=== PATIENT | male | born 1970 | race Caucasian/White ===

== ENCOUNTER 2016-12-20 14:46 | Emergency (ER) | payer OTHER ==
[~2016-12-20] VITALS: Ht 177.8 cm; Wt 156.0 kg
[~2016-12-20 14:46] MED LIST: ALLE24TA PO; FLON0.053; LEXA5TAB PO; LISI10TA PO; NORV2.5T11
[2016-12-20 14:48] VITALS: BP 159/98; PULSE 107; RESP 16; TEMP 98.2; O2SAT 98
[2016-12-20] MEDS ORDERED: FEXO1TAB97 PO (14:59)
[2016-12-20] MEDS ORDERED: LISI10TA PO (14:59)
[2016-12-20] MEDS ORDERED: NORV2.5T PO (14:59)
[2016-12-20] MEDS ORDERED: LEXA5TAB PO (14:59)
[2016-12-20] MEDS ORDERED: METF500T PO (14:59)
[2016-12-20] MEDS ORDERED: FLUT1SPR5 EACH NARE (14:59)
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
== END 2016-12-20 15:30 | disposition home or self-care (01) ==
LOC: PHED 14:46
DX: S20.219A Contusion of unspecified front wall of thorax, initial encounter (principal); I10 Essential (primary) hypertension; V49.49XA Driver injured in collision with other motor vehicles in traffic accident, initial encounter; Y92.410 Unspecified street and highway as the place of occurrence of the external cause
CPT/HCPCS: 99281

== ENCOUNTER 2017-07-04 07:40 | Inpatient (IN) | payer OTHER ==
[~2017-07-04] VITALS: Ht 177.8 cm; Wt 150.1 kg
[~2017-07-04 07:40] MED LIST changes: +ACETAMINOPHEN 1000 MG/100 ML 0 ML IV ONE; -ALLE24TA PO; +BUPIVACAINE/EPINEPHRINE 0.25% PF 30 ML VIAL ONE; +FEXO1TAB97 PO; -FLON0.053; +FLUT1SPR5 EACH NARE; +GENTAMICIN SULFATE 80 MG/2 ML VIAL ONE; +HYDROmorphone HCL PF 2 MG/ML VIAL ONE; +KETAMINE HCL 500 MG/10 ML VIAL ONE; +METF500T PO; +NORV2.5T PO; -NORV2.5T11; +PROPOFOL 500 MG/50 ML INJ 0 ML ONE
[2017-07-04] MEDS ORDERED: LACTATED RINGER'S 1000 ML IV PRN (08:00)
[2017-07-04] MEDS ORDERED: VANCOMYCIN 1000 MG/NS 250 ML (for <70 kg) IV SCH ×2 (08:00)
[2017-07-04] MEDS ORDERED: POVIDONE IODINE 7.5% SCRUB 118 ML BOTTLE TOPICAL SCH (08:00)
[2017-07-04] MEDS ORDERED: SODIUM CHLORID 0.9% 500 ML IV PRN (08:00)
[2017-07-04] MEDS ORDERED: METOPROLOL TARTRATE 25 MG TAB PO PRN (08:00)
[2017-07-04] MEDS ORDERED: CHLORHEXIDINE GLUCONATE 2 % 1 PACK (2 CLOTHS) TOPICAL PRN (08:00)
[2017-07-04] MEDS ORDERED: ceFAZolin 2 GM PREMIX 50 ML IV SCH (08:00)
[2017-07-04] MEDS ORDERED: POVIDONE IODINE 5% (ANTISEPSIS KIT) 4 APPLICATIONS EACH NARE PRN (08:00)
[2017-07-04] MEDS ORDERED: APREPITANT 40 MG CAP ONE (08:09)
[2017-07-04] MEDS ORDERED: PROPOFOL 500 MG/50 ML INJ 0 ML ONE (08:27)
[2017-07-04] MEDS ORDERED: HYDROmorphone HCL PF 2 MG/ML VIAL ONE (08:27)
[2017-07-04] MEDS ORDERED: PROPOFOL 500 MG/50 ML INJ 200 ML ONE (11:15)
[2017-07-04] MEDS ORDERED: ceFAZolin INJ 1,000 MG VIAL IV ONE (11:41)
[2017-07-04] MEDS ORDERED: BISACODYL 10 MG SUPP RECTAL PRN (13:00)
[2017-07-04] MEDS ORDERED: ONDANSETRON HCL 4 MG/2 ML VIAL IV PUSH PRN ×2 (13:00→19:00)
[2017-07-04] MEDS ORDERED: Post-op Orders (for Pharmacy) XX ONE (13:00)
[2017-07-04] MEDS ORDERED: ACETAMINOPHEN/HYDROcodone 325 MG/7.5 MG TAB PO PRN (13:00)
[2017-07-04] MEDS ORDERED: DEXTROSE 50% IN WATER 50 ML VIAL(D50) IV PUSH PRN (13:00)
[2017-07-04] MEDS ORDERED: GLUCAGON 1 MG/ML VIAL OTHER PRN (13:00)
[2017-07-04] MEDS ORDERED: MORPHINE SULFATE 2 MG/ML INJ IV PUSH PRN (13:15)
--- NOTE | 2017-07-04 13:36 | RADRPT ---
EXAM DATE/TIME: 07/04/2017 11:42 [place] COMPARISON: No previous studies available for comparison. INDICATIONS : Anterior C6/7 fusion. MEDICAL HISTORY : Unobtainable. SURGICAL HISTORY : Unobtainable. ENCOUNTER: Initial ACUITY: 1 day PAIN SCORE: Non-responsive. LOCATION: Cervical spine. FINDINGS: Two projection examination was performed intraoperatively. There is an anterior cervical fusion at C6 -7 CONCLUSION: 5 view intraoperatively shows anterior fusion plate at C6-7. Constantine Rondon MD on July 04, 2017 at 13:33 Board Certified Radiologist. This report was verified electronically.
[2017-07-04] MEDS: LACTATED RINGER'S 1000 ML INJ 1,000 ML IV SCH ×2 (14:15→22:45)
[2017-07-04] MEDS ORDERED: DO NOT ADM ANY ANTICOAGULANT DRUGS PRN (14:30)
[2017-07-04] MEDS ORDERED: *morphine SULFATE 8 MG/ML PERIprocedure ONLY ONE ×2 (14:36→16:05)
--- NOTE | 2017-07-04 14:38 | PD.OP ---
cc: Bernabe Hale MD; Rodolfo Hale MD Operative Report Date of Surgery: Jul 04, 2017 Preoperative Diagnosis: Herniated nucleus pulposus C6 7 central, left. Left C7 radiculopathy Postoperative Diagnosis: Same Procedure: Anterocervical discectomy decompression with foraminotomies and resection herniated nucleus pulposus. Left anterior iliac crest bone graft Anesthesia: Gen. Surgeon: Rodolfo Hale Final Assembly Inspector(s): HUGO Agrawal Operation and Findings: EBL: 100 cc INDICATIONS: Patient is a 46-year-old white male with a BMI of 47.5 weighing 360 pounds who presents with a severe left C7 radiculopathy related to a large disc herniation centrally into the left at C6 7. He presents for surgical treatment NOTE: [HUGO Rodriguez was present for the entire surgical procedure as my entry level administrative assistant. In my medical opinion her skill and care was necessary for proper management of this patient PROCEDURE: The patient was brought to the operating room and anesthetized in the supine position. This patient was positioned supine on the radiolucent table. This was a very difficult preparation for surgery. The time the patient entered the room until the time the incision was started was over 2 hours. The patient is morbidly obese. He has a very large neck. The initial lateral radiographic image with the patient on the table was so difficult to visualize that we could not see the inferior endplate of C2. We needed to tape his shoulders down and reposition. After multiple attempts the best we could do which we could barely see the C4 5 level on the lateral radiograph. The patient has massive shoulders and a very short neck. We were able to image from anterior to posterior allowing for skin markings to anticipate the C6 7 level. It took over 1 minute of fluoroscopic images in order to be prepared to start the operation. This is felt to be an excessive amount of time and therefore it will be reflected in this patient's overall record that his morbid obesity in my opinion increases the chance of complications from surgery and the chance of wrong level surgery because of such difficulty in being able to image him properly. This is only related to the patient's body size. All pressure points were protected in the anterior cervical spine and iliac crest was scrubbed with alcohol followed by Hibiclens followed by ChloraPrep. A timeout was done and antibiotics were given within 1 hour time window. Lateral and AP radiographic images were used identifying the proper level. A right anterior incision was made in line with skin creases. The platysma was opened in line with the incision. Deep dissection continued in the interval between the carotid sheath and the esophagus. The longus-coli muscles were lifted on both sides and retractors were positioned allowing good exposure. Lateral radiographic images were used to identify the proper level. Kimberly style interosseous pins were placed at C6-C7 and [] allowing exposure to that level. The microscope was rolled into the field. A total discectomy was accomplished and posterior osteophytes were removed. The posterior longitudinal ligament and annulus was taken down. There was a very large disc herniation centrally into the left extending into the foramen creating significant left C7 nerve root compromise. Bilateral foraminotomies were accomplished. The endplates were squared up anticipating later bone grafting. A blunt probe could be placed out each foramen without evidence of nerve root compromise. The left iliac crest was approached. A small stab incision was made allowing percutaneous access to the anterior iliac crest. Multiple cores of cancellous bone were harvested and taken to the back table to be used for later bone grafting. The wound was irrigated anesthetized and closed with 4-0 Vicryl followed by Dermabond. The case was turned over to Dr. Bernabe Hale for fusion and instrumentation per his dictation. FINDINGS: There was a large sequestered disc herniation to the left at the C6 7 level. There is no complication that was appreciated. The patient's body size increased the length of time of my operating room supervision by over 1-1/2 hours more than usual. NOTE: This surgery was performed in 2 parts. The first part was the neurosurgical decompression performed under the variable power stereo microscope by the undersigned in addition to the bone graft. The second portion of the surgery will be performed by the orthopedic spine component by co -surgeon, Dr. Bernabe Hale for the anterior fusion with interbody cage and anterior plate. The skill of 2 surgeons was necessary to perform distinct separate procedural services as dictated above and dictated in the following operative note by Dr. Bernabe Hale. Rodolfo Hale MD Jul 04, 2017 14:38
[2017-07-04] MEDS ORDERED: HYDR-3580 PO (14:39)
[2017-07-04] MEDS ORDERED: PILL SPLITTER OTHER PRN (15:00)
[2017-07-04] MEDS: INSULIN NovoLIN REGULAR SUPPLEMENTAL SCALE SQ SCH ×2 (15:25→21:33)
[2017-07-04 17:55] VITALS: BP 133/71; PULSE 95; RESP 18; TEMP 96.1; O2SAT 96
[2017-07-04] MEDS: ACETAMINOPHEN/HYDROcodone 325 MG/7.5 MG TAB PO PRN (18:39)
[2017-07-04 20:30] VITALS: BP 129/72; PULSE 103; RESP 17; TEMP 97.4; O2SAT 95
[2017-07-04] MEDS: FLUTICASONE PROPIONATE 50 MCG/ACT 16 GM NASAL SPRAY NASAL SCH (21:34)
[2017-07-05 00:50] VITALS: BP 142/71; PULSE 85; RESP 18; TEMP 97.5; O2SAT 96
[2017-07-05 04:40] VITALS: BP 142/86; PULSE 89; RESP 18; TEMP 96.9; O2SAT 96
[2017-07-05 06:08] VITALS: O2SAT 97
[2017-07-05] MEDS: INSULIN NovoLIN REGULAR SUPPLEMENTAL SCALE SQ SCH ×2 (08:00→12:00)
--- NOTE | 2017-07-05 08:01 | HHI.DCPOC ---
Discharge Care Plan Diagnosis: (1) Cervical spinal stenosis (2) Herniated cervical disc without myelopathy Your Health Problems Are: Incision/Drains Inflammation Goals to Promote Your Health * To prevent worsening of your condition and complications * To maintain your health at the optimal level Directions to Meet Your Goals Take your medications as prescribed Follow your dietary instruction Follow activity as directed Keep your appointments as scheduled Take your immunizations and boosters as scheduled If your symptoms worsen call your PCP, if no PCP go to Urgent Care Center or Emergency Room Smoking is Dangerous to Your Health. Avoid second hand smoke Call the 24-hour hour crisis hotline for domestic abuse at Richa Whipple Jul 05, 2017 08:01
--- NOTE | 2017-07-05 08:02 | PD.ORT.PN ---
Subjective Subjective Remarks He looks very good. No significant arm pain. Very pleased. Objective Vitals Vital Signs Date Time Temp Pulse Resp B/P (MAP) Pulse Ox O2 Delivery O2 Flow Rate FiO2 07/05/17 06:08 97 2.00 07/05/17 04:40 96.9 89 18 142/86 (104) 96 07/05/17 00:50 97.5 85 18 142/71 (94) 96 07/05/17 00:50 19 07/04/17 23:29 Nasal Cannula 2.00 07/04/17 20:30 97.4 103 17 129/72 (91) 95 07/04/17 19:31 17 07/04/17 17:55 96.1 95 18 133/71 (91) 96 07/04/17 17:00 84 20 140/68 (92) 97 Nasal Cannula 3 07/04/17 16:00 71 14 144/65 (91) 98 Nasal Cannula 3 07/04/17 15:30 84 12 154/70 (98) 98 Nasal Cannula 3 07/04/17 15:00 82 12 136/75 (95) 97 Nasal Cannula 4 07/04/17 14:45 79 12 156/53 (87) 97 Nasal Cannula 4 07/04/17 14:30 64 24 111/53 (72) 96 Nasal Cannula 4 07/04/17 14:15 69 18 115/57 (76) 96 Simple Mask 10 07/04/17 13:59 98.5 63 20 141/60 (87) 93 Simple Mask 12 07/04/17 08:38 98.7 83 20 128/84 (99) 98 I/O 07/04/17 07/04/17 07/04/17 07/05/17 07/05/17 07/05/17 07:00 15:00 23:00 07:00 15:00 23:00 Intake Total 2000 ml 1480 ml 580 ml Output Total 50 ml 325 ml 1575 ml Balance 1950 ml 1155 ml -995 ml Intake Oral 480 ml 480 ml IV Total 1000 ml 100 ml Other 2000 ml Output Urine Total 325 ml 1575 ml Estimated Blood Loss 50 ml # Voids 1 # Bowel Movements 0 0 Objective Remarks Motor examination left triceps 5-/5 Ravi significant improvement compared to preop. Dressing dry. Minimal hoarseness. No pain over bone graft site Assessment & Plan Ortho Post Op Day #: 1 Problem List: Assessment and Plan HNP C6 7, left. Left C7 radiculopathy. Surgery: ACDF C6 7. PLAN: [place] for pain. Discharge today. Full-time brace wear. Dry dressing change. Limited activities of cervical spine wearing his collar full-time. Follow-up in 2 weeks. Orthopedically stable Rodolfo Hale MD Jul 05, 2017 08:02
--- NOTE | 2017-07-05 08:02 | HHI.DS ---
Discharge Summary Admission Date Jul 04, 2017 at 12:56 Discharge Date: Jul 05, 2017 Admitting Diagnosis see below Diagnosis: (1) Cervical spinal stenosis Diagnosis: Principal ICD Codes: M48.02 - Spinal stenosis, cervical region (2) Herniated cervical disc without myelopathy ICD Codes: M50.20 - Other cervical disc displacement, unspecified cervical region Procedures Anterior cervical decompression and fusion C67, bone graft. Brief History This is a 46 year old male patient..left shoulder and arm pain.. Hospital Course ..difficult surgery due to body habitus... left arm pain improved day one. D/ C home... norco 7.5mg for pain. Pt Condition on Discharge: Stable Discharge Disposition: Discharge Home Discharge Instructions Diet Instructions: Soft Diet, High Fiber Diet Additional Diet Instructions: Soft diet for 48 hours only. Activities You Can Perform: See Additionl Instruction Activities to Avoid: Strenuous Activity Additional Activity Instruc.: Cervical brace multimedia authoring specialist for 2 weeks New Medications: Hydrocodone/Acetaminophen (Hydrocodone-Acetamin 7.5-325) 7.5 Mg-325 Mg Tablet 1 TAB PO Q4H PRN for PAIN, #50 TAB Continued Medications: Amlodipine (Norvasc) 2.5 Mg Tab 2.5 MG PO DAILY for Blood Pressure Management, #30 TAB 0 Refills Escitalopram (Lexapro) 5 Mg Tab 5 MG PO DAILY, #30 TAB 0 Refills Fexofenadine-Pseudoephedrine ER 24 HR (Carolin-D 24 Hour Allergy) 180-240 [place] 1 TAB PO DAILY for Allergy Management, #30 TAB 0 Refills Fluticasone Nasal [place] (Flonase Nasal [place]) 50 Mcg/Act [place] 50 MCG EACH NARE BID for Allergies, #1 BOTTLE 0 Refills Lisinopril-Hctz (Lisinopril-Hctz) 10-12.5 Mg Tab 1 TAB PO DAILY for Blood Pressure Management, #30 TAB 0 Refills Metformin (Metformin) 500 Mg Tab 500 MG PO DAILY for Blood Sugar Management, #30 TAB 0 Refills With a meal Richa Whipple Jul 05, 2017 08:02
[2017-07-05 08:40] VITALS: BP 131/75; PULSE 83; RESP 18; TEMP 97.1; O2SAT 97
[2017-07-05] MEDS: FLUTICASONE PROPIONATE 50 MCG/ACT 16 GM NASAL SPRAY NASAL SCH (08:41)
[2017-07-05] MEDS ORDERED: metFORMIN HCL 500 MG TAB PO SCH (09:00)
[2017-07-05] MEDS ORDERED: HYDROCHLOROTHIAZIDE 25 MG TAB PO SCH (09:00)
[2017-07-05] MEDS ORDERED: LORATADINE/PSEUDOEPHEDRINE 5 MG/120 MG TAB PO SCH (09:00)
[2017-07-05] MEDS ORDERED: NON-FORMULARY DRUG (Lisinopril-Hctz 1 TAB) PO SCH (09:00)
[2017-07-05] MEDS ORDERED: amLODIPine BESYLATE 5 MG TAB PO SCH (09:00)
[2017-07-05] MEDS ORDERED: LISINOPRIL 10 MG TAB PO SCH (09:00)
[2017-07-05] MEDS ORDERED: MULTIVITAMINS/MINERALS THERAPEUTIC TAB PO SCH (09:00)
[2017-07-05] MEDS ORDERED: DOCUSATE SODIUM 100 MG CAP PO SCH (09:00)
[2017-07-05] MEDS ORDERED: ESCITALOPRAM OXALATE 10 MG TAB PO SCH (09:00)
[2017-07-05] MEDS ORDERED: INFLUENZA VIRUS VACCINE (QUADRIVALENT) 0.5 ML SYR IM ONE (10:00)
[2017-07-05 13:17] VITALS: BP 142/73; PULSE 74; RESP 19; TEMP 97.3; O2SAT 95
[2017-07-05] MEDS: ACETAMINOPHEN/HYDROcodone 325 MG/7.5 MG TAB PO PRN (13:47)
[2017-07-05] MEDS: LACTATED RINGER'S 1000 ML INJ 1,000 ML IV SCH (13:55)
--- NOTE | 2017-07-06 10:58 | MP ---
cc: BERNABE REYNOLDS M.D., [place] DATE OF SURGERY: 07/04/2017. PREOPERATIVE DIAGNOSIS: 1. C5-6 large herniated nucleus pulposus. 2. Left-sided cervical radiculitis 3. Cervical spine degenerative disc disease / osteoarthritis. 4. Morbid obesity with a BMI of 45.2. POSTOPERATIVE DIAGNOSIS: 1. C5-6 large herniated nucleus pulposus. 2. Left-sided cervical radiculitis 3. Cervical spine degenerative disc disease / osteoarthritis. 4. Morbid obesity with a BMI of 45.2. OPERATIVE PROCEDURE PERFORMED: C6-7 anterior body fusion; C6-7 Spine[employer] ACC anterior cervical cage; C6-7 Spine[employer] Rauscher anterior spinal instrumentation. SURGEON: Bernabe Reynolds MD. ANNEALING OVEN OPERATOR: Kelsie Moreno PA-C. ESTIMATED BLOOD LOSS: 50 cc. COMPLICATIONS: None. DRAINS: None. DESCRIPTION OF THE PROCEDURE IN DETAIL: Dr. Rodolfo Reynolds and myself were co-surgeons. Dr. Rodolfo Reynolds performed the neurosurgical decompression portion of the procedure, which was the C6-7 anterior cervical discectomy using the operative microscope with left-sided foraminotomy. I performed the orthopedic stabilization portion of the procedure. Because of the patient's very large size, it was technically demanding and very time consuming in order to maintain safety for the patient because of his very large size. Very difficult in imaging the patient, especially in the lateral plane because of his very large body size and his associated morbid obesity. My care team assistant, Kelsie Moreno PA-C, was present for my portion of the surgical case. She was medically necessary for the case because of the complexity of the case and especially because of the patient's morbid obesity and to facilitate the performance of the procedure. The AUTOMOTIVE TIRE TESTER at the back table did not have a skill set in this case to manipulate the instruments, e.g. the multiple types of soft tissue retractors, trial implants and permanent implants. The patient was brought into the operating room and had satisfactory anesthesia by the department of anesthesia Dr. Rodolfo Reynolds performed at C6-7 anterior cervical diskectomy and anterior decompression using the operative microscope and a left anterior iliac crest bone grafting. I was not present for his portion of the procedure. The end plates at C6-7 were prepared for fusion. Hyaline cartilage at the end plate was removed using angled curettes and burs. A 610 x 12 ACC cage was placed in the interspace. Again imaging was difficult in the lateral plane. This was because of the patient's morbid obesity. Two screws were used in the vertebral body at C6 and C7. These two screws were 14 mm in length, 4.0 mm outer diameter fixed angle screws. Each screw was initially was drilled with a drill bit and then the screws were inserted into the vertebral bodies and each screw head was appropriately locked to the plate. Intraoperative fluoroscopy in the AP and lateral planes confirmed satisfactory position of the plate and screws and bone graft and cage. The wound was irrigated with copious amounts of sterile saline antibiotic solution and the wound itself was dry. The wound was closed in multiple layers using 3-0 Vicryl. The skin was approximated with running subcuticular 4-0 Vicryl. The patient was placed in a [place] cervical orthosis. Dermabond was placed over the skin incision. The patient tolerated the procedure well and went to the recovery room in stable and satisfactory condition. MD SURAJ Montiel/DARRYN /1:28 PM /10:28 AM
== END 2017-07-05 14:16 | disposition home or self-care (01) | DRG 472 ==
LOC: HSDC 07:40 → HSDI 12:56 → N06B 17:44
PROVIDERS: ADMIT Orthopaedic Surgery Orthopaedic Surgery of the Spine; ATTEND Orthopaedic Surgery Orthopaedic Surgery of the Spine
PROC: 0RT30ZZ Resection of Cervical Vertebral Disc, Open Approach (ICD-10-PCS; 2017-07-04)
PROC: 0QB33ZZ Excision of Left Pelvic Bone, Percutaneous Approach (ICD-10-PCS; 2017-07-04)
PROC: 0RG10A0 Fusion of Cervical Vertebral Joint with Interbody Fusion Device, Anterior Approach, Anterior Column, Open Approach (ICD-10-PCS; principal; 2017-07-04 09:44)
DX: M50.123 Cervical disc disorder at C6-C7 level with radiculopathy (principal); Z68.42 Body mass index [BMI] 45.0-49.9, adult; I10 Essential (primary) hypertension; M48.02 Spinal stenosis, cervical region; M47.22 Other spondylosis with radiculopathy, cervical region; E66.01 Morbid (severe) obesity due to excess calories; E11.9 Type 2 diabetes mellitus without complications; F32.9 Major depressive disorder, single episode, unspecified; Z79.84 Long term (current) use of oral hypoglycemic drugs
CPT/HCPCS: 72040; 76000; 82948; 94150; J0131; J0690; J1170; J1580; J2270; J2405; J3370; J7050; J7120; J8501; L0150